=== PATIENT | female | born 1975 | race Caucasian/White ===

== ENCOUNTER 2018-03-26 01:24 | Inpatient (IN) | payer OTHER ==
[2018-03-26] VITALS (9 sets, daily range): BP systolic 103–136; BP diastolic 50–76
[~2018-03-26] VITALS: Ht 165.1 cm; Wt 78.6 kg
--- NOTE | ~2018-03-26 | O ---
[place], [place] OPERATIVE NOTE NAME: HECTOR UNIT #: [id number] ROOM: 426 DOCTOR: ANTOINETTE JOINERGISELE BIRTHDATE: [birth year] DOS: 03/27/2018 HISTORY OF PRESENT ILLNESS: The patient is a 43-year-old presented with sudden epigastric distress and dyspepsia of severe degree. The patient to a point where she had to seek medical attention. The patient was admitted and PPI was started and endoscopy was recommended for assessment. RADIOLOGIC STUDIES: CT scan of the abdomen was normal except thickening of the gastric mucosa. Sonographic study unremarkable. Comprehensive metabolic panel within normal limit. Liver function test normal. Electrolytes, BUN and creatinine, GFR greater than 60, normal. White blood cell was normal. H and H within normal limits. There was only continuation of patient's symptomatology. 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 PAST SURGICAL HISTORY: Tubal ligation. SOCIAL HISTORY: Nonsmoker and nonalcohol consumer. FAMILY HISTORY: Noncontributory. ALLERGIES: No known to medication. HOME MEDICATIONS: Does not include PPIs, but she is taking diclofenac t.i.d. 50 mg and that is the only culprit under remarks. Therefore, the concern became diclofenac induced ulcers and endoscopy was becoming eminent to be addressing the findings. PROCEDURE: Today's procedure part of investigation is panendoscopy plus biopsy. PREMEDICATIONS: Versed and Diprivan. SCOPE: Olympus forward-viewing gastroscope Q10 video. REPORT: After putting the patient in left lateral position and application of lubricant to the scope, the scope was introduced; thereafter, under direct visualization, advanced through the length of esophagus without difficulty. Gastric pouch was entered. A 2 cm small hiatal hernia was noticed. Gastric pouch was entered. Evidence for gastritis and gastric erosions and linear gastritis extending from the proximal gastric pouch all the way to antrum was noticed in the antrum. There is a host of ulceration proximal to pyloric ring and some occupying and invading pyloric ring as well, one measuring 2.5 in length and 1.5 in centimeter and multiple linear ulcers as well. Duodenum was entered. Duodenal bulb second and third part are free of ulceration; however, associated duodenitis noticed. Scope was withdrawn back from the gastric pouch. Biopsy from margin of antral ulcer was obtained for H. pylori. GI reflection of the scope confirmed hiatal hernia. Air was suctioned out. The patient was extubated and tolerated the procedure well. [place], [place] OPERATIVE NOTE NAME: LILA YOUNG UNIT #: [id number] ROOM: 426 DOCTOR: GISELE CURRY MD BIRTHDATE: [birth year] IMPRESSION: Nonsteroidal anti-inflammatory induced multi-gastric ulcer, gastric erosions, duodenitis, and gastritis. The culprit was diclofenac that she is taking t.i.d. PLAN AND DISCUSSION: At the present time, while she is in the hospital, we are going to start her on sucralfate 2 grams before meals and at bedtime and even continue with sucralfate for 2-week supply as outpatient, 1 gram before meals and at bedtime as outpatient as well as we are going to start her on Protonix 40 mg every day p.o. Diet is going to be GERD diet and antireflux with elevation of the head of the bed 6 inch all time. Gaviscon as antacid of choice to be utilized one at bedtime and follow up as outpatient. Awaiting H. pylori result; should it become positive, prescription is going to be rendered. GISELE CURRY MD CM:OPRECORD:OPERATIVE NOTE [id number] GISELE CURRY MD 03/27/18 1441 interface
[~2018-03-26 01:24] MED LIST: DICLOFENAC POTA50 MG PO; INDOCIN50 MG PO
[2018-03-26 01:44] LABS: BASO % 0.2 % (0.0-1.0); EOS # 0.2 10*3/uL (0.0-0.4); EOS % 2.5 % (1.0-4.0); HEMATOCRIT 39.3 % (37.0-47.0); LYMPH # 2.7 10*3/uL (1.3-4.4); LYMPH % 32.2 % (27.0-41.0); MEAN CELL VOLUME 86.6 fl (81.0-99.0); MEAN CORPUSCULAR HGB 28.6 pg (27.0-31.0); MEAN CORPUSCULAR HGB CONC 33.1 g/dl (33.0-37.0); MEAN PLATELET VOLUME 9.3 fl (9.6-12.3); MONO # 0.7 10*3/uL (0.1-1.0); MONO % 7.8 % (3.0-9.0); NEUT # 4.8 10*3/uL (2.3-7.9); NEUT % 57.1 % (47.0-73.0); PLATELET COUNT AUTOMATED 342 10*3/uL (130-400); RED BLOOD COUNT 4.54 10*6/uL (4.10-5.10); RED CELL DISTRI WIDTH 12.9 % (0-14.5); WHITE BLOOD COUNT 8.4 10*3/uL (4.8-10.8)
[2018-03-26 01:59] LABS: ALKALINE PHOSPHATASE 48 U/L (45-117); BUN 11 mg/dl (7-24); CHLORIDE 105 mmol/L (98-107); CREATININE 1.01 mg/dL (0.55-1.02); LIPASE 88 U/L (73-393); POTASSIUM 3.6 mmol/L (3.5-5.1); SGOT/AST 12 IU/L (3-35); SGPT/ALT 20 U/L (12-78); SODIUM 143 mmol/L (136-145); TOTAL PROTEIN 7.5 gm/dL (6.4-8.2)
[2018-03-26 02:28] LABS: ACT PARTIAL THROMBO TIME 22.7 SECONDS (20.8-31.5)
[2018-03-26 06:48] LABS: BASO % 0.3 % (0.0-1.0); EOS # 0.2 10*3/uL (0.0-0.4); EOS % 2.6 % (1.0-4.0); HEMATOCRIT 36.5 % (37.0-47.0); HEMOGLOBIN 11.9 g/dl (12.0-16.0); LYMPH % 32.2 % (27.0-41.0); MEAN CELL VOLUME 87.1 fl (81.0-99.0); MEAN CORPUSCULAR HGB 28.4 pg (27.0-31.0); MEAN CORPUSCULAR HGB CONC 32.6 g/dl (33.0-37.0); MEAN PLATELET VOLUME 9.2 fl (9.6-12.3); MONO # 0.5 10*3/uL (0.1-1.0); MONO % 8.1 % (3.0-9.0); NEUT # 3.5 10*3/uL (2.3-7.9); NEUT % 56.8 % (47.0-73.0); PLATELET COUNT AUTOMATED 307 10*3/uL (130-400); RED BLOOD COUNT 4.19 10*6/uL (4.10-5.10); RED CELL DISTRI WIDTH 13.1 % (0-14.5); WHITE BLOOD COUNT 6.2 10*3/uL (4.8-10.8)
[2018-03-26 07:21] LABS: ALBUMIN 3.4 gm/dl (3.1-4.5); ALKALINE PHOSPHATASE 40 U/L (45-117); BUN 10 mg/dl (7-24); CHLORIDE 106 mmol/L (98-107); CHOLESTEROL 135 mg/dL (<200); CREATININE 0.92 mg/dL (0.55-1.02); FREE T4 0.85 ng/dl (0.76-1.46); HDL CHOLESTEROL 53 mg/dl (40-60); LDL CHOLESTEROL 68 mg/dL (9-159); POTASSIUM 3.6 mmol/L (3.5-5.1); SGOT/AST 12 IU/L (3-35); SGPT/ALT 18 U/L (12-78); SODIUM 141 mmol/L (136-145); TOTAL PROTEIN 6.4 gm/dL (6.4-8.2); TRIGLYCERIDES 70 mg/dl (<150); VLDL CHOLESTEROL 14 mg/dL (6-40)
[2018-03-26 08:04] LABS: VITAMIN D, 25-HYDROXY 22.5 ng/mL (30-100)
[2018-03-27] VITALS: BP 101/59
[2018-03-27 06:46] LABS: BASO % 0.5 % (0.0-1.0); EOS # 0.2 10*3/uL (0.0-0.4); EOS % 3.3 % (1.0-4.0); HEMATOCRIT 35.5 % (37.0-47.0); HEMOGLOBIN 11.6 g/dl (12.0-16.0); LYMPH # 2.1 10*3/uL (1.3-4.4); LYMPH % 39.1 % (27.0-41.0); MEAN CELL VOLUME 87.7 fl (81.0-99.0); MEAN CORPUSCULAR HGB 28.6 pg (27.0-31.0); MEAN CORPUSCULAR HGB CONC 32.7 g/dl (33.0-37.0); MEAN PLATELET VOLUME 9.6 fl (9.6-12.3); MONO # 0.5 10*3/uL (0.1-1.0); MONO % 9.1 % (3.0-9.0); NEUT # 2.6 10*3/uL (2.3-7.9); NEUT % 47.8 % (47.0-73.0); PLATELET COUNT AUTOMATED 288 10*3/uL (130-400); RED BLOOD COUNT 4.05 10*6/uL (4.10-5.10); RED CELL DISTRI WIDTH 12.9 % (0-14.5); WHITE BLOOD COUNT 5.5 10*3/uL (4.8-10.8)
[2018-03-27 06:50] LABS: BUN 11 mg/dl (7-24); CHLORIDE 109 mmol/L (98-107); CREATININE 0.89 mg/dL (0.55-1.02); SODIUM 142 mmol/L (136-145)
[2018-03-27 08:00] VITALS: BP 105/57
[2018-03-27 13:30] VITALS: BP 119/70
[2018-03-27 14:17] VITALS: BP 112/82
[2018-03-27 14:32] VITALS: BP 119/72
[2018-03-27 14:47] VITALS: BP 120/74
[2018-03-27] MEDS ORDERED: GAVISCON 80-141 EACH PO (15:49)
[2018-03-27] MEDS ORDERED: CARAFATE1 G1 PO (15:49)
[2018-03-27] MEDS ORDERED: PANTOPRAZOLE SO40 MG PO (15:49)
== END 2018-03-27 16:07 | disposition home or self-care (01) | DRG 392 ==
LOC: ED → 4E 05:04 → EDHOLD 05:04 → 4E 05:35
PROVIDERS: Family Medicine; Student in an Organized Health Care Education/Training Program
PROC: 0DB68ZX Excision of Stomach, Via Natural or Artificial Opening Endoscopic, Diagnostic (ICD-10-PCS; principal; 2018-03-27)
DX: K29.00 Acute gastritis without bleeding (principal); A04.8 Other specified bacterial intestinal infections; E66.3 Overweight; K44.9 Diaphragmatic hernia without obstruction or gangrene; D64.9 Anemia, unspecified; E83.41 Hypermagnesemia; E55.9 Vitamin D deficiency, unspecified; K29.80 Duodenitis without bleeding; Z68.28 Body mass index [BMI] 28.0-28.9, adult; Z98.51 Tubal ligation status

== ENCOUNTER → 2018-04-08 | Outpatient (CLI) | payer OTHER ==
[~2018-04-08] MED LIST changes: +CARAFATE1 G1 PO; +GAVISCON 80-141 EACH PO; +PANTOPRAZOLE SO40 MG PO
== END | disposition home or self-care (01) ==
LOC: US 06:20
DX: E04.1 Nontoxic single thyroid nodule (principal)

== ENCOUNTER → 2018-11-20 | Outpatient (CLI) | payer OTHER | END | disposition home or self-care (01) | LOC: MRI 10:00 | DX: S83.207A Unspecified tear of unspecified meniscus, current injury, left knee, initial encounter (principal); X58.XXXA Exposure to other specified factors, initial encounter; Y93.89 Activity, other specified; Y92.89 Other specified places as the place of occurrence of the external cause; Y99.8 Other external cause status ==

== ENCOUNTER 2019-10-31 00:01 | Emergency (ER) | payer OTHER ==
[~2019-10-31] VITALS: Ht 170.1 cm; Wt 68.0 kg
[2019-10-31 00:20] VITALS: BP 131/82
[2019-10-31 00:30] LABS: BASO % 0.4 % (0.0-1.0); EOS # 0.1 10*3/uL (0.0-0.4); EOS % 1.3 % (1.0-4.0); HEMATOCRIT 37.1 % (37.0-47.0); HEMOGLOBIN 12.3 g/dl (12.0-16.0); LYMPH # 0.9 10*3/uL (1.3-4.4); LYMPH % 19.6 % (27.0-41.0); MEAN CELL VOLUME 87.9 fl (81.0-99.0); MEAN CORPUSCULAR HGB 29.1 pg (27.0-31.0); MEAN CORPUSCULAR HGB CONC 33.2 g/dl (33.0-37.0); MEAN PLATELET VOLUME 9.3 fl (9.6-12.3); MONO # 0.4 10*3/uL (0.1-1.0); NEUT # 3.3 10*3/uL (2.3-7.9); NEUT % 69.5 % (47.0-73.0); PLATELET COUNT AUTOMATED 324 10*3/uL (130-400); RED BLOOD COUNT 4.22 10*6/uL (4.10-5.10); RED CELL DISTRI WIDTH 13.2 % (0-14.5); WHITE BLOOD COUNT 4.8 10*3/uL (4.8-10.8)
[2019-10-31 00:37] LABS: ALBUMIN 3.5 gm/dl (3.1-4.5); ALKALINE PHOSPHATASE 52 U/L (45-117); BUN 10 mg/dl (7-24); CHLORIDE 109 mmol/L (98-107); CREATININE 0.93 mg/dL (0.55-1.02); LIPASE 51 U/L (73-393); POTASSIUM 3.2 mmol/L (3.5-5.1); SGOT/AST 13 IU/L (3-35); SGPT/ALT 24 U/L (12-78); SODIUM 140 mmol/L (136-145); TOTAL PROTEIN 7.2 gm/dL (6.4-8.2)
== END 2019-10-31 01:57 | disposition home or self-care (01) ==
LOC: ED 00:01
PROVIDERS: Emergency Medicine
DX: R10.13 Epigastric pain (principal); R10.11 Right upper quadrant pain; R11.2 Nausea with vomiting, unspecified; Z79.899 Other long term (current) drug therapy

== ENCOUNTER → 2021-10-11 | Outpatient (CLI) | payer OTHER | END | disposition home or self-care (01) | LOC: RAD 13:11 | PROVIDERS: ATTEND Nurse Practitioner Primary Care | DX: S39.92XA Unspecified injury of lower back, initial encounter (principal); M53.88 Other specified dorsopathies, sacral and sacrococcygeal region; X58.XXXA Exposure to other specified factors, initial encounter; Y93.89 Activity, other specified; Y92.89 Other specified places as the place of occurrence of the external cause; Y99.8 Other external cause status ==

== ENCOUNTER 2023-05-24 00:06 | Emergency (ER) | payer OTHER ==
[~2023-05-24] VITALS: Ht 162.5 cm; Wt 65.8 kg
[2023-05-24 00:17] VITALS: BP 132/74
== END 2023-05-24 06:15 | disposition home or self-care (01) ==
LOC: ED 00:06
DX: M79.661 Pain in right lower leg (principal); M25.571 Pain in right ankle and joints of right foot; R60.0 Localized edema; Z79.899 Other long term (current) drug therapy; Z98.51 Tubal ligation status; W54.1XXA Struck by dog, initial encounter; Y93.89 Activity, other specified; Y92.098 Other place in other non-institutional residence as the place of occurrence of the external cause; Y99.8 Other external cause status

== ENCOUNTER 2024-01-17 04:24 | Emergency (ER) | payer OTHER ==
[2024-01-17] MEDS ORDERED: Ketorolac Tromethamine 30 MG/ML VIAL IV ONE (04:30)
[2024-01-17] MEDS ORDERED: SODIUM CHLORIDE 0.9% 1,000 ML IV ONE (04:30)
[2024-01-17 04:39] VITALS: BP 130/59
[2024-01-17] MEDS ORDERED: IOHEXOL 300 MG/ML 100 ML VIAL IV ONE (04:40)
[2024-01-17 05:07] LABS: BUN 10 mg/dl (9-23); CHLORIDE 103 mmol/L (98-107); LIPASE 25 U/L (12-53); POTASSIUM 3.2 mmol/L (3.4-5.1)
[2024-01-17 05:53] LABS: BASO % 0.3 % (0.0-1.0); EOS # 0.1 10*3/uL (0.0-0.4); EOS % 2.2 % (1.0-4.0); LYMPH # 2.3 10*3/uL (1.3-4.4); LYMPH % 35.8 % (27.0-41.0); MEAN CELL VOLUME 86.5 fl (81.0-99.0); MEAN CORPUSCULAR HGB 28.2 pg (27.0-31.0); MEAN CORPUSCULAR HGB CONC 32.6 g/dl (33.0-37.0); MEAN PLATELET VOLUME 9.1 fl (9.6-12.3); MONO # 0.6 10*3/uL (0.1-1.0); MONO % 9.6 % (3.0-9.0); NEUT # 3.3 10*3/uL (2.3-7.9); NEUT % 51.8 % (47.0-73.0); PLATELET COUNT AUTOMATED 384 10*3/uL (130-400); RED BLOOD COUNT 4.51 10*6/uL (4.10-5.10); RED CELL DISTRI WIDTH 13.1 % (0-14.5); WHITE BLOOD COUNT 6.4 10*3/uL (4.8-10.8)
== END 2024-01-17 06:22 | disposition home or self-care (01) ==
LOC: ED 04:24
PROVIDERS: Internal Medicine
DX: K82.8 Other specified diseases of gallbladder (principal); R11.2 Nausea with vomiting, unspecified; Z98.51 Tubal ligation status; Z98.890 Other specified postprocedural states

== ENCOUNTER 2024-01-25 09:23 | Inpatient (IN) | payer OTHER ==
[~2024-01-25] VITALS: Ht 165.1 cm; Wt 75.7 kg
[2024-01-25 09:29] VITALS: BP 110/79
[2024-01-25] MEDS ORDERED: Ketorolac Tromethamine 15 MG/ML VIAL IV ONE (09:40)
[2024-01-25] MEDS ORDERED: Ondansetron Hydrochloride 4 MG/2 ML VIAL IV ONE (09:40)
[2024-01-25] MEDS ORDERED: MORPHINE Sulfate 2 MG/ML SYR IV PRN (09:40)
[2024-01-25] MEDS ORDERED: SODIUM CHLORIDE 0.9% 1,000 ML IV ONE (09:40)
[2024-01-25 10:04] LABS: MEAN CELL VOLUME 85.9 fl (81.0-99.0); MEAN CORPUSCULAR HGB CONC 32.6 g/dl (33.0-37.0); MEAN PLATELET VOLUME 8.7 fl (9.6-12.3); PLATELET COUNT AUTOMATED 338 10*3/uL (130-400); RED BLOOD COUNT 4.54 10*6/uL (4.10-5.10); RED CELL DISTRI WIDTH 13.2 % (0-14.5); WHITE BLOOD COUNT 10.2 10*3/uL (4.8-10.8)
[2024-01-25 10:05] LABS: MANUAL DIFF REFLEX YES
[2024-01-25 10:25] LABS: ALKALINE PHOSPHATASE 59 U/L (46-116); BUN 11 mg/dl (9-23); CHLORIDE 102 mmol/L (98-107); LIPASE 25 U/L (12-53); POTASSIUM 3.7 mmol/L (3.4-5.1); SGPT/ALT 12 U/L (5-49); TOTAL PROTEIN 7.7 gm/dL (6.0-8.0)
[2024-01-25 10:31] LABS: BURR CELLS FEW; PLATELET SUFFICIENCY NORMAL (NORMAL); POLYCHROMASIA SLIGHT; TOTAL CELLS COUNTED 100 #CELLS; TOXIC GRANULATION SLIGHT
[2024-01-25] MEDS ORDERED: TEMAZEPAM 15 MG CAP PO PRN (12:00)
[2024-01-25] MEDS ORDERED: ACETAMINOPHEN 325 MG TAB PO PRN (12:00)
[2024-01-25] MEDS ORDERED: Acetaminophen/Hydrocodone 5 MG/325 MG TABLET PO PRN (12:00)
[2024-01-25] MEDS ORDERED: Ondansetron Hydrochloride 4 MG/2 ML VIAL IV PRN (12:00)
[2024-01-25 15:30] VITALS: BP 122/65
[2024-01-25] MEDS ORDERED: Ketorolac Tromethamine 15 MG/ML VIAL IM PRN (19:30)
[2024-01-25 20:00] VITALS: BP 107/61
[2024-01-25] MEDS ORDERED: Pantoprazole Sodium 40 MG VIAL IV SCH ×2 (21:25→22:00)
[2024-01-26] VITALS (12 sets, daily range): BP systolic 97–135; BP diastolic 54–88
[2024-01-26] MEDS ORDERED: Pantoprazole Sodium 40 MG VIAL IV SCH (06:00)
[2024-01-26 06:11] LABS: BASO % 0.2 % (0.0-1.0); EOS % 0.5 % (1.0-4.0); HEMATOCRIT 34.5 % (37.0-47.0); LYMPH # 1.1 10*3/uL (1.3-4.4); LYMPH % 25.3 % (27.0-41.0); MEAN CORPUSCULAR HGB 28.1 pg (27.0-31.0); MEAN CORPUSCULAR HGB CONC 31.9 g/dl (33.0-37.0); MEAN PLATELET VOLUME 8.9 fl (9.6-12.3); MONO # 0.4 10*3/uL (0.1-1.0); NEUT # 2.7 10*3/uL (2.3-7.9); NEUT % 64.8 % (47.0-73.0); PLATELET COUNT AUTOMATED 282 10*3/uL (130-400); RED BLOOD COUNT 3.92 10*6/uL (4.10-5.10); RED CELL DISTRI WIDTH 13.3 % (0-14.5); WHITE BLOOD COUNT 4.2 10*3/uL (4.8-10.8)
[2024-01-26 06:54] LABS: ALKALINE PHOSPHATASE 47 U/L (46-116); BUN 9 mg/dl (9-23); CHLORIDE 106 mmol/L (98-107); CHOLESTEROL 145 mg/dL (<200); LDL CHOLESTEROL 80 mg/dL (9-159); POTASSIUM 3.5 mmol/L (3.4-5.1); SGPT/ALT 9 U/L (5-49); TOTAL PROTEIN 6.3 gm/dL (6.0-8.0); TRIGLYCERIDES 66 mg/dl (<150)
[2024-01-26 07:42] LABS: VITAMIN D, 25-HYDROXY 28.9 ng/mL (30-100)
[2024-01-26] MEDS ORDERED: SINCALIDE 1.5 MCG in SODIUM CHLORIDE 0.9% 50 ML IV ONE (09:15)
[2024-01-26] MEDS ORDERED: Enoxaparin Sodium 40 MG/0.4 ML SYR SC SCH (10:00)
[2024-01-26] MEDS ORDERED: ceFAZolin sodium/sodium chlor 20 ML IV ONE ×2 (12:10→13:24)
[2024-01-26] MEDS ORDERED: SODIUM CHLORIDE 0.9% 1,000 ML IV ONE (13:07)
[2024-01-26] MEDS ORDERED: EPINEPHrine/Lidocaine Hydroc 20 ML VIAL ONE (13:16)
[2024-01-26] MEDS ORDERED: BUPIVACAINE 0.5% 30 ML IV ONE (13:16)
[2024-01-26] MEDS ORDERED: POTASSIUM CH/0.45 NS 1,000 ML IV SCH (13:20)
[2024-01-26] MEDS ORDERED: HYDROmorphONE Hydrochloride 1 MG/ML SYR IV PRN (13:20)
[2024-01-26] MEDS ORDERED: Ondansetron Hydrochloride 4 MG/2 ML VIAL IV PRN (13:20)
[2024-01-26] MEDS ORDERED: ceFAZolin sodium 2 GM in SYRINGE INFUSION 20 ML IV SCH (20:00)
[2024-01-26] MEDS ORDERED: Neostigmine Methylsulfate 3 MG/3 ML SYRINGE IV ONE (21:23)
[2024-01-26] MEDS ORDERED: PROPOFOL 200 MG/20 ML VIAL IV ONE (21:23)
[2024-01-26] MEDS ORDERED: SEVOFLURANE 250 ML BOT INH ONE (21:23)
[2024-01-26] MEDS ORDERED: Dexamethasone Sodium Phospha 20 MG/5 ML VIAL IV ONE (21:23)
[2024-01-26] MEDS ORDERED: ROCURONIUM BROMIDE 50 MG/5 ML SYRINGE IV ONE (21:23)
[2024-01-26] MEDS ORDERED: GLYCOPYRROLATE 0.4 MG/2 ML VIAL IV ONE (21:23)
[2024-01-26] MEDS ORDERED: Midazolam Hydrochloride 2 MG/2 ML VIAL IV ONE (21:40)
[2024-01-27] VITALS: BP 115/63
[2024-01-27 06:28] LABS: BASO % 0.1 % (0.0-1.0); LYMPH # 1.1 10*3/uL (1.3-4.4); LYMPH % 14.3 % (27.0-41.0); MEAN CELL VOLUME 85.9 fl (81.0-99.0); MEAN CORPUSCULAR HGB 28.8 pg (27.0-31.0); MEAN CORPUSCULAR HGB CONC 33.5 g/dl (33.0-37.0); MEAN PLATELET VOLUME 8.9 fl (9.6-12.3); MONO # 0.5 10*3/uL (0.1-1.0); MONO % 6.8 % (3.0-9.0); NEUT # 6.1 10*3/uL (2.3-7.9); NEUT % 78.5 % (47.0-73.0); PLATELET COUNT AUTOMATED 299 10*3/uL (130-400); RED BLOOD COUNT 3.96 10*6/uL (4.10-5.10); WHITE BLOOD COUNT 7.7 10*3/uL (4.8-10.8)
[2024-01-27 06:59] LABS: ALKALINE PHOSPHATASE 130 U/L (46-116); BUN 9 mg/dl (9-23); CHLORIDE 105 mmol/L (98-107); POTASSIUM 3.7 mmol/L (3.4-5.1); SGPT/ALT 205 U/L (5-49); TOTAL PROTEIN 6.3 gm/dL (6.0-8.0)
[2024-01-27 08:00] VITALS: BP 124/68
[2024-01-27] MEDS ORDERED: VITAMIN D350 MC2 PO (11:21)
[2024-01-27] MEDS ORDERED: HYDROCODONE-AC1 EAC1 PO (11:21)
== END 2024-01-27 12:00 | disposition home or self-care (01) | DRG 418 ==
LOC: ED 09:23 → EDHOLD 11:32 → 5E 15:05
PROVIDERS: Emergency Medicine; Family Medicine; ADMIT Internal Medicine; ATTEND Internal Medicine
PROC: 0FT44ZZ Resection of Gallbladder, Percutaneous Endoscopic Approach (ICD-10-PCS; principal; 2024-01-26)
DX: K81.0 Acute cholecystitis (principal); E87.1 Hypo-osmolality and hyponatremia; E66.3 Overweight; E55.9 Vitamin D deficiency, unspecified; K81.1 Chronic cholecystitis; D64.9 Anemia, unspecified; Z98.51 Tubal ligation status; Z81.8 Family history of other mental and behavioral disorders; Z68.27 Body mass index [BMI] 27.0-27.9, adult

== ENCOUNTER 2025-03-05 09:16 | Emergency (ER) | payer OTHER ==
[~2025-03-05] VITALS: Ht 165.1 cm; Wt 74.8 kg
[~2025-03-05 09:16] MED LIST changes: +HYDROCODONE-AC1 EAC1 PO; +VITAMIN D350 MC2 PO
[2025-03-05 09:21] VITALS: BP 117/48
[2025-03-05] MEDS ORDERED: methylPREDNISolone sod succ 125 MG VIAL IV ONE (09:45)
[2025-03-05 09:57] LABS: HEMATOCRIT 35.4 % (37.0-47.0); MEAN CELL VOLUME 85.1 fl (81.0-99.0); MEAN CORPUSCULAR HGB 27.9 pg (27.0-31.0); MEAN CORPUSCULAR HGB CONC 32.8 g/dl (33.0-37.0); MEAN PLATELET VOLUME 8.5 fl (9.6-12.3); PLATELET COUNT AUTOMATED 337 10*3/uL (130-400); RED BLOOD COUNT 4.16 10*6/uL (4.10-5.10); RED CELL DISTRI WIDTH 13.4 % (0-14.5); WHITE BLOOD COUNT 4.9 10*3/uL (4.8-10.8)
[2025-03-05 09:58] LABS: MANUAL DIFF REFLEX YES
[2025-03-05 10:04] LABS: ACT PARTIAL THROMBO TIME 25.4 SECONDS (20.0-32.1)
[2025-03-05 10:16] LABS: ATYPICAL LYMPHS 3 % (0-0); BASOPHILS 1 % (0-1); POLYCHROMASIA SLIGHT; TOTAL CELLS COUNTED 100 #CELLS
[2025-03-05 10:17] LABS: OVALOCYTES FEW; PLATELET SUFFICIENCY NORMAL (NORMAL)
[2025-03-05 10:22] LABS: ALKALINE PHOSPHATASE 54 U/L (46-116); BUN 6 mg/dl (9-23); CHLORIDE 107 mmol/L (98-107); POTASSIUM 3.2 mmol/L (3.4-5.1); SGPT/ALT 34 U/L (5-49); TOTAL PROTEIN 6.6 gm/dL (6.0-8.0)
[2025-03-05 10:29] LABS: BILIRUBIN Negative (Negative); BLOOD Negative (Negative); CLARITY Cloudy (Clear); COLOR Yellow (Yellow); GLUCOSE Negative (Negative); KETONE Negative (Negative); LEUKO ESTERASE Trace (Negative); NITRITE Negative (Negative); UROBILINOGEN 0.2 E.U./dl (0.0-1.0)
[2025-03-05 10:40] LABS: BACTERIA 3+; EPITHELIAL CELLS 51-100; RBC 0-2 rbc/hpf (0-2)
[2025-03-05] MEDS ORDERED: PREDNISONE10 M1 PO (11:35)
[2025-03-05] MEDS ORDERED: HYDROCODONE-AC1 EAC1 PO (11:36)
== END 2025-03-05 11:51 | disposition home or self-care (01) ==
LOC: ED 09:16
PROVIDERS: Emergency Medicine
DX: M25.50 Pain in unspecified joint (principal); R79.82 Elevated C-reactive protein (CRP); R21 Rash and other nonspecific skin eruption; Z90.49 Acquired absence of other specified parts of digestive tract; Z98.51 Tubal ligation status

== ENCOUNTER → 2025-03-19 | Outpatient (CLI) | payer OTHER ==
[~2025-03-19] MED LIST changes: +PREDNISONE10 M1 PO
[2025-03-19 15:33] LABS: BASO % 0.5 % (0.0-1.0); EOS # 0.1 10*3/uL (0.0-0.4); EOS % 1.4 % (1.0-4.0); HEMATOCRIT 37.9 % (37.0-47.0); MEAN CELL VOLUME 88.1 fl (81.0-99.0); MEAN CORPUSCULAR HGB 28.6 pg (27.0-31.0); MEAN CORPUSCULAR HGB CONC 32.5 g/dl (33.0-37.0); MEAN PLATELET VOLUME 8.8 fl (9.6-12.3); MONO # 0.8 10*3/uL (0.1-1.0); MONO % 9.4 % (3.0-9.0); NEUT # 4.5 10*3/uL (2.3-7.9); NEUT % 53.8 % (47.0-73.0); PLATELET COUNT AUTOMATED 387 10*3/uL (130-400); RED CELL DISTRI WIDTH 14.8 % (0-14.5); WHITE BLOOD COUNT 8.3 10*3/uL (4.8-10.8)
[2025-03-19 15:35] LABS: BILIRUBIN Negative (Negative); BLOOD Negative (Negative); CLARITY Clear (Clear); COLOR Yellow (Yellow); GLUCOSE Negative (Negative); KETONE Negative (Negative); LEUKO ESTERASE Negative (Negative); NITRITE Negative (Negative); SPECIFIC GRAVITY 1.015 (1.001-1.030)
[2025-03-19 15:57] LABS: ALKALINE PHOSPHATASE 68 U/L (46-116); BUN 15 mg/dl (9-23); CHLORIDE 104 mmol/L (98-107); CPK 34 U/L (34-171); POTASSIUM 3.2 mmol/L (3.4-5.1); SGPT/ALT 26 U/L (5-49); TOTAL PROTEIN 7.3 gm/dL (6.0-8.0)
[2025-03-19 16:06] LABS: BACTERIA TRACE; EPITHELIAL CELLS 0-2; RBC 0-2 rbc/hpf (0-2); WBC 0-2 wbc/hpf (0-5)
[2025-03-20 14:07] LABS: ANTI-DSDNA ANTIBODIES 21 IU/mL (0-9); ANTI-RNP ANTIBODIES 0.7 AI (0.0-0.9); ANTICHROMATIN ANTIBODIES 0.2 AI (0.0-0.9); ANTISCLERODERMA-70 AB <0.2 AI (0.0-0.9)
[2025-03-20 15:07] LABS: ALBUMIN 3.5 g/dL (2.9-4.4); ALPHA-1-GLOBULIN 0.2 g/dL (0.0-0.4); ALPHA-2-GLOBULIN 0.9 g/dL (0.4-1.0); BETA GLOBULIN 0.9 g/dL (0.7-1.3); GAMMA GLOBULIN 1.4 g/dL (0.4-1.8); GLOBULIN, TOTAL 3.4 g/dL (2.2-3.9)
[2025-03-20 16:07] LABS: ANTICARDIOLIPIN AB, IGM, QN 61 MPL U/mL (0-12)
[2025-03-21 02:06] LABS: DPT CONFIRM RATIO 1.16 Ratio (0.00-1.34); LUPUS DRVVT 39.3 sec (0.0-47.0); THROMBIN TIME 22.8 sec (0.0-23.0)
[2025-03-21 03:06] LABS: LUPUS REFLEX INTERPRETATION Comment: (.)
== END | disposition home or self-care (01) ==
LOC: LAB 15:04
PROVIDERS: ATTEND Internal Medicine
DX: M32.9 Systemic lupus erythematosus, unspecified (principal)

== ENCOUNTER 2025-06-25 15:56 | Emergency (ER) | payer OTHER ==
[~2025-06-25] VITALS: Ht 170.1 cm; Wt 80.7 kg
[2025-06-25 16:09] VITALS: BP 120/74
[2025-06-25] MEDS ORDERED: SODIUM CHLORIDE 0.9% 1,000 ML IV ONE (16:20)
[2025-06-25] MEDS ORDERED: HYDROmorphONE Hydrochloride 0.5 MG/0.5 ML SYRINGE IV ONE (16:25)
[2025-06-25] MEDS ORDERED: IOHEXOL 300 MG/ML 100 ML VIAL IV ONE (16:25)
[2025-06-25 16:56] LABS: BASO # 0.0 10*3/uL (0.0-0.1); BASO % 0.3 % (0.0-1.0); EOS # 0.1 10*3/uL (0.0-0.4); EOS % 1.0 % (1.0-4.0); MEAN CELL VOLUME 87.6 fl (81.0-99.0); MEAN CORPUSCULAR HGB 28.7 pg (27.0-31.0); MEAN PLATELET VOLUME 9.0 fl (9.6-12.3); MONO # 0.5 10*3/uL (0.1-1.0); MONO % 8.2 % (3.0-9.0); NEUT # 4.7 10*3/uL (2.3-7.9); NEUT % 74.0 % (47.0-73.0); NUCLEATED RED BLOOD CELL 0.0 % (0.0-0.0); NUCLEATED RED BLOOD CELL 0.0 10*3/uL (0.0-0.0); PLATELET COUNT AUTOMATED 363 10*3/uL (130-400); RED CELL DISTRI WIDTH 13.1 % (0-14.5)
[2025-06-25 16:58] LABS: BILIRUBIN Negative (Negative); BLOOD Negative (Negative); CLARITY Clear (Clear); COLOR Yellow (Yellow); KETONE Negative (Negative); LEUKO ESTERASE Negative (Negative); NITRITE Negative (Negative); PH 6.0 (4.5-8.0); SPECIFIC GRAVITY <= 1.005 (1.001-1.030); UROBILINOGEN 0.2 E.U./dl (0.0-1.0)
[2025-06-25 17:19] LABS: BUN 7 mg/dl (9-23); SGPT/ALT 15 U/L (5-49)
[2025-06-25 17:34] LABS: BACTERIA 1+
[2025-06-25 17:35] LABS: MUCOUS TRACE
[2025-06-25] MEDS ORDERED: metroNIDAZOLE 500 MG TAB PO ONE (22:50)
[2025-06-25] MEDS ORDERED: Ciprofloxacin Hydrochloride 500 MG TAB PO ONE (22:50)
[2025-06-26] MEDS ORDERED: METRONIDAZOLE500 M1 PO (03:52)
[2025-06-26] MEDS ORDERED: CIPRO500 MG PO (03:52)
== END 2025-06-26 04:46 | disposition home or self-care (01) ==
LOC: ED 15:56
PROVIDERS: Internal Medicine
DX: K52.9 Noninfective gastroenteritis and colitis, unspecified (principal); N83.8 Other noninflammatory disorders of ovary, fallopian tube and broad ligament

== ENCOUNTER 2025-07-03 14:37 | Emergency (ER) | payer OTHER ==
[~2025-07-03] VITALS: Ht 167.6 cm; Wt 81.2 kg
[~2025-07-03 14:37] MED LIST changes: +CIPRO500 MG PO; +METRONIDAZOLE500 M1 PO
[2025-07-03 14:50] VITALS: BP 133/85
[2025-07-03] MEDS ORDERED: SODIUM CHLORIDE 0.9% 1,000 ML IV ONE (15:00)
[2025-07-03] MEDS ORDERED: fentaNYL CITRATE/PF 50 MCG/ML SYRINGE IV ONE (15:00)
[2025-07-03] MEDS ORDERED: IOHEXOL 300 MG/ML 100 ML VIAL IV ONE (15:15)
[2025-07-03 15:17] LABS: BASO # 0.0 10*3/uL (0.0-0.1); BASO % 0.2 % (0.0-1.0); EOS # 0.4 10*3/uL (0.0-0.4); EOS % 10.4 % (1.0-4.0); MEAN CELL VOLUME 88.9 fl (81.0-99.0); MEAN CORPUSCULAR HGB 28.9 pg (27.0-31.0); MEAN PLATELET VOLUME 8.9 fl (9.6-12.3); MONO # 0.3 10*3/uL (0.1-1.0); MONO % 8.2 % (3.0-9.0); NEUT # 2.7 10*3/uL (2.3-7.9); NEUT % 66.2 % (47.0-73.0); NUCLEATED RED BLOOD CELL 0.0 % (0.0-0.0); NUCLEATED RED BLOOD CELL 0.0 10*3/uL (0.0-0.0); PLATELET COUNT AUTOMATED 299 10*3/uL (130-400); RED CELL DISTRI WIDTH 13.8 % (0-14.5)
[2025-07-03 15:40] LABS: BUN 8 mg/dl (9-23)
[2025-07-03 16:48] LABS: BILIRUBIN Negative (Negative); BLOOD Negative (Negative); CLARITY Cloudy (Clear); COLOR Yellow (Yellow); KETONE Negative (Negative); LEUKO ESTERASE Negative (Negative); NITRITE Negative (Negative); PH 6.0 (4.5-8.0); SPECIFIC GRAVITY 1.015 (1.001-1.030); UROBILINOGEN 0.2 E.U./dl (0.0-1.0)
[2025-07-03 17:03] LABS: BACTERIA 2+
[2025-07-03] MEDS ORDERED: PREDNISONE50 MG PO (17:19)
[2025-07-03] MEDS ORDERED: ZANAFLEX2 M1 PO (17:19)
== END 2025-07-03 17:35 | disposition home or self-care (01) ==
LOC: ED 14:37
PROVIDERS: Nurse Practitioner Family
DX: M62.830 Muscle spasm of back (principal); M54.6 Pain in thoracic spine; R11.0 Nausea; R19.7 Diarrhea, unspecified; Z79.899 Other long term (current) drug therapy; Z90.49 Acquired absence of other specified parts of digestive tract; Z87.891 Personal history of nicotine dependence